=== PATIENT | female | born 1975 | race Caucasian/White ===

== ENCOUNTER → 2024-03-30 09:00 | Outpatient (CLI) | payer OTHER, SELFPAY ==
[2024-03-30 19:45] LABS: Add Manual Diff / Slide Review NO; Basophils Absolute Auto 100 /uL (0-100); Basophils Percent Auto 0.9 % (0-2); Eosinophils Absolute Auto 100 /uL (0-450); Eosinophils Percent Auto 0.9 % (2-4); Hematocrit 37.3 % (36-46); Hemoglobin 12.5 g/dL (12.0-16.0); Lymphocytes Absolute Auto 1600 /uL (1100-4500); Lymphocytes Percent Auto 25.9 % (25-40); Mean Corpuscular HGB Conc 33.5 % (30-36); Mean Corpuscular Hemoglobin 31.7 PG (26-34); Mean Corpuscular Volume 94.9 fL (80-100); Monocytes Absolute Auto 500 /uL (0-900); Monocytes Percent Auto 9.1 % (3-14); Neutrophils Absolute Auto 3800 /uL (1500-7000); Neutrophils Percent Auto 63.2 % (50-75); Platelet Count 289 X10^3/uL (150-400); Red Blood Cell Count 3.94 X10^6/uL (4.0-5.2); Red Cell Distribution Width 12.3 % (11.6-14.8)
[2024-03-30 20:24] LABS: Hemoglobin A1C% w Est Avg Glu 5.1 % (4.0-6.0)
[2024-03-30 20:26] LABS: Cholesterol 186 mg/dL (140-199); HDL Cholesterol 66 mg/dL (40-60); LDL Cholesterol Calculated 105 mg/dL (<100); Triglycerides 77 mg/dL (35-150)
[2024-03-30 20:39] LABS: Follicle Stimulating Hormone 4.84 mIU/mL
[2024-03-30 20:52] LABS: TSH w/ Reflex to FT4 1.73 uIU/mL (0.47-4.68)
[2024-03-30 20:55] LABS: Estradiol, Total 505.3 pg/mL
[2024-03-30 21:04] LABS: Ferritin 20 ng/mL (6-137)
== END ==
PROVIDERS: PCP Family Medicine; Visit Provider Nurse Practitioner Adult Health
DX: N95.1 Menopausal and female climacteric states (principal); D24.9 Benign neoplasm of unspecified breast
CPT/HCPCS: 80061; 82397; 82670; 82728; 83001; 83036; 84443; 85025

== ENCOUNTER → 2024-04-19 10:59 | Outpatient (CLI) | payer OTHER, SELFPAY | PROVIDERS: PCP Family Medicine; Referring Provider Internal Medicine; Visit Provider Internal Medicine | DX: Z23 Encounter for immunization (principal) | CPT/HCPCS: 90471; 90656 ==

== ENCOUNTER → 2024-05-02 11:34 | Outpatient (CLI) | payer OTHER, SELFPAY ==
--- NOTE | 2024-05-02 11:36 | DI.US.S_ITS ---
PROCEDURE: US PERIPH VENOUS UP EXTREM LT INDICATIONS: very enlarged left ext jugular (vs. internal?) TECHNIQUE: Real-time imaging, as well as color and pulse Doppler interrogation, was performed of the upper extremity deep veins from the inferior neck to the antecubital fossa. COMPARISON: None. FINDINGS: The internal jugular vein, visualized portions of the subclavian vein, axillary, and brachial veins are free of intraluminal thrombus. Where physically possible, the veins are normally compressible. Color and pulse Doppler demonstrate normal intraluminal flow, with expected phasicity and pulsatility. Additional scanning of the cephalic and basilic veins of the superficial system demonstrates normal compressibility, without thrombus. Note is made that the external jugular vein appears more prominent when sitting. IMPRESSION: No findings of upper extremity deep venous thrombosis can be seen. Dictated by: Yandel Quiros M.D. on 05/02/2024 at 13:56 Approved by: Yandel Quiros M.D. on 05/02/2024 at 13:57
--- NOTE | 2024-05-02 11:36 | DI.MG.S_ITS ---
BILATERAL DIGITAL SCREENING MAMMOGRAM 3D/2D WITH CAD: 05/02/2024 CLINICAL: Routine screening. Baseline exam. Family history of breast cancer. Comparison is made to exams dated: 02/27/2023 mammogram and 01/25/2022 mammogram - outside location. The breasts are heterogeneously dense, which may obscure small masses (category c / 51-75% glandular tissue). Current study was also evaluated with a Computer Aided Detection (CAD) system. No significant masses, calcifications, or other findings are seen in either breast. There has been no significant interval change. IMPRESSION: NEGATIVE There is no mammographic evidence of malignancy. A 1 year screening mammogram is recommended. Based on the Tyrer Cuzick model (a risk assessment model) the patient's lifetime risk is 11.9% and her 10 year risk is 2.3%. According to the ACR, ACS, and NCCN guidelines, an annual breast MRI exam along with mammogram is recommended if the patient's lifetime risk is 20% or greater. This exam was interpreted at Station ID: [id number]. NOTE: For mammograms, a report in lay terms will be sent to the patient. Approximately 15% of breast malignancies will not be visualized mammographically. In the management of a palpable breast mass, a negative mammogram must not discourage biopsy of a clinically suspicious lesion. Electronically Signed By: Rosana Ayala M.D., Ph.D. ed/alexia:05/02/2024 13:10:16 letter sent: Normal Exam ACR BI-RADS Category 1: Negative
--- NOTE | 2024-05-02 11:36 | DI.US.S_ITS ---
PROCEDURE: US PELVIC COMPLETE INDICATIONS: abnormal uterine bleeding, use of unopposed estrogen/HRT TECHNIQUE: Real-time scanning was performed of the pelvic organs, with image documentation. Additional endovaginal scanning was necessary due to incomplete visualization of the adnexal and endometrial structures by transabdominal scanning. COMPARISON: None. FINDINGS: Uterus: Uterus is anteverted and normal in size at 7.5 x 5.8 x 3.7 cm. The myometrium is homogeneous. The endometrium measures 5 mm combined thickness. Possible arcuate uterine morphology. Possible ill-defined mid posterior intramural fibroid measuring 1.6 x 1.5 x 1.3 centimeters. Ovaries: The right ovary measures 2.8 x 2.5 x 2.5 cm. Likely corpus luteal cyst in the right ovary measuring 1.3 x 1.2 x 1.3 centimeters. The left ovary measures 2.2 x 1.7 x 1.2 cm. Hyperechoic focus in the left ovary measuring 0.6 x 0.6 x 0.4 centimeters. Less than 12 follicles can be seen in each ovary. No adnexal masses are seen. Other: No pathologic free abdominal or pelvic fluid. IMPRESSION: Endometrium is normal in thickness measuring 5 millimeters. Possible arcuate uterine morphology. Ill-defined lesion in the posterior uterus measuring 1.6 centimeters, may represent a fibroid. Hyperechoic focus in the left ovary measuring 6 millimeters, may represent a corpus albicans versus dermoid. Recommend follow-up ultrasound in 6-12 weeks. Likely corpus luteal cyst in the right ovary measuring 1.3 centimeters. We strive to produce accurate, complete, and clear reports of imaging services. To assist us in improving patient care, this report was composed using standard report templates and voice recognition software. Therefore, it may contain abnormal punctuation, insertions and/or omissions. Occasional wrong-word or sound-alike substitutions may occur. Though we review the report and make efforts to correct it, we do recommend that the report be read carefully in proper context to recognize any text inaccuracies. Dictated by: Zachery Diaz M.D. on 05/02/2024 at 16:26 Approved by: Zachery Diaz M.D. on 05/02/2024 at 16:31
== END ==
PROVIDERS: PCP Family Medicine; Referring Provider Family Medicine; Visit Provider Family Medicine
DX: R09.89 Other specified symptoms and signs involving the circulatory and respiratory systems (principal); N92.6 Irregular menstruation, unspecified; N93.9 Abnormal uterine and vaginal bleeding, unspecified; R92.333 Mammographic heterogeneous density, bilateral breasts; Z80.3 Family history of malignant neoplasm of breast
CPT/HCPCS: 76830; 76856; 77063; 77067; 93971

== ENCOUNTER → 2024-05-16 14:40 | Outpatient (CLI) | payer OTHER, SELFPAY ==
[2024-05-16 20:25] LABS: Follicle Stimulating Hormone 61.1 mIU/mL
[2024-05-20 23:36] LABS: Anti Mullerian Hormone <0.015 ng/mL (.)
== END ==
PROVIDERS: PCP Family Medicine; Visit Provider Nurse Practitioner Adult Health
DX: N93.9 Abnormal uterine and vaginal bleeding, unspecified (principal); N95.1 Menopausal and female climacteric states
CPT/HCPCS: 82397; 82670; 83001

== ENCOUNTER → 2024-12-29 09:14 | Outpatient (CLI) | payer OTHER, SELFPAY ==
--- NOTE | 2024-12-29 09:16 | DI.US.S_ITS ---
US breast LT limited, MM diagnostic mammo unilat LT: 12/29/2024 BI-RADS: 2 CLINICAL: 49-year old female for left diagnostic mammogram and bilateral diagnostic breast ultrasound. Tyrer-Cuzick lifetime risk of 15.4%. No personal or first- degree family history of breast cancer. Current reported family history of breast cancer: maternal aunt. The patient reports pain (6 months) in the left breast. The patient had a prior left breast biopsy. PRIOR EXAMS 05/02/2024 outside films 02/27/2023 and 01/25/2022. MAMMOGRAPHY TECHNIQUE: 2D and 3D (tomosynthesis) digital mammographic views obtained, with additional images as needed for full coverage. Current study was also evaluated with a Computer Aided Detection (CAD) system. ULTRASOUND TECHNIQUE Real-time loera scale imaging of the area of clinical interest was performed with image documentation. TARGETED Left Breast Ultrasound: Real-time ultrasound exam was performed focused to area of clinical and/or imaging concern. DENSITY Left: D. The breast is extremely dense, which lowers the sensitivity of mammography. MAMMOGRAPHY FINDINGS Left (finding-1): Lower Outer Quadrant, Middle depth: There is no suspicious mammographic finding to account for concern by the patient of pain/tenderness. Benign-appearing post-surgical changes noted on the left. No suspicious mass, asymmetry, microcalcification, or other abnormality seen. ULTRASOUND FINDINGS Left (finding-1): Lower Outer at 4:00, 5 cm from nipple: Correlating with pain/tenderness there is a region of scar tissue. There is no suspicious sonographic finding. IMPRESSION: Left * No evidence of malignancy with benign findings. RECOMMENDATIONS Left * Clinical follow-up is recommended, and further management of palpable abnormalities or other focal signs or symptoms should be based on the results of clinical evaluation. If palpable abnormality or other concerning symptom persists or progresses, further clinical evaluation should be considered. Bilateral * Annual screening mammography (due April 2025). COMMENTS: Findings and recommendations were conveyed to the patient during today's evaluation. OVERALL ASSESSMENT CATEGORY BI-RADS-2: Benign. The [employer] recommends annual screening mammography beginning at age 40 for women with average risk of breast cancer. ELECTRONICALLY SIGNED: Maryse Mariano M.D. on 12/29/2024 at 11:49:20 AM PT Interpreting Station ID: [id number]
== END ==
PROVIDERS: PCP Physician Assistant Medical; Referring Provider Physician Assistant Medical; Visit Provider Physician Assistant Medical
DX: N64.4 Mastodynia (principal); R92.342 Mammographic extreme density, left breast; Z80.3 Family history of malignant neoplasm of breast; K64.9 Unspecified hemorrhoids; K62.5 Hemorrhage of anus and rectum
CPT/HCPCS: 76642; 77065; G0279

== ENCOUNTER → 2025-02-15 13:02 | Outpatient (CLI) | payer OTHER, SELFPAY ==
[2025-02-15 19:12] LABS: Add Manual Diff / Slide Review NO; Hematocrit 35.9 % (36-46); Hemoglobin 12.4 g/dL (12.0-16.0); Lymphocytes Absolute Auto 2000 /uL (1100-4500); Mean Corpuscular HGB Conc 34.6 % (30-36); Mean Corpuscular Hemoglobin 32.5 PG (26-34); Mean Corpuscular Volume 93.9 fL (80-100); Platelet Count 378 X10^3/uL (150-400)
[2025-02-15 19:35] LABS: Alanine Aminotransferase 15 IU/L (<35); Albumin 4.6 g/dL (3.5-5.0); Albumin Globulin Ratio 1.5 (1.0-2.8); Alkaline Phosphatase 80 U/L (38-126); Blood Urea Nitrogen 12 mg/dL (7-17); Calcium 9.5 mg/dL (8.4-10.2); Carbon Dioxide 26 mmol/L (22-32); Chloride 101 mmol/L (98-107); Estimated Glomerular Filt Rate > 60 mL/min (>60); Globulin 3.0 g/dL (1.7-4.1); Glucose 101 mg/dL (70-99); HEMOLYSIS < 15 (0-50); Potassium 4.9 mmol/L (3.4-5.1); Sodium 138 mmol/L (137-145); Total Protein 7.6 g/dL (6.3-8.2)
[2025-02-15 20:07] LABS: TSH w/ Reflex to FT4 0.98 uIU/mL (0.47-4.68)
== END ==
PROVIDERS: PCP Physician Assistant Medical; Visit Provider Physician Assistant Medical
DX: N92.6 Irregular menstruation, unspecified (principal); D64.9 Anemia, unspecified; N93.9 Abnormal uterine and vaginal bleeding, unspecified
CPT/HCPCS: 80053; 84443; 85025